=== PATIENT | male | born 1970 | race Caucasian/White ===

== ENCOUNTER 2023-05-06 10:23 | Emergency (ER) | payer OTHER, SELFPAY ==
[2023-05-06 10:29] VITALS: BP 147/106; PULSE 89; RESP 18; TEMP 35.8; O2SAT 97; BMI 30.7
--- NOTE | 2023-05-06 10:43 | ED.UPPEXIN ---
HPI - Extremity Injury (Upper) General Time Seen by Provider: 10:43 Date Seen: 05/06/23 Chief Complaint: Extremity Pain/Injury, Upper Stated Complaint: lac right hand Time Seen by Provider: 05/06/23 10:43 Source: patient and RN notes reviewed Mode of arrival: ambulatory Limitations: no limitations History of Present Illness HPI narrative: Nursing staff alerted me to this 52-year-old male that brought in the distal aspect of his left 2nd index finger after a miter saw took off the finger. He is controlling bleeding with a rag. Tetanus is not up-to-date. Nothing else was injured. Injury happened about 10:00 a.m.. He is predominantly right-handed. 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 MD complaint: injury to: left and finger Related Data Home Medications Medication Instructions Recorded Confirmed No Known Home Medications 05/06/23 05/06/23 Allergies Allergy/AdvReac Type Severity Reaction Status Date / Time No Known Drug Allergies Allergy Verified 05/06/23 10:29 Review of Systems Narrative: As per HPI. PFSH PFSH Social History Smoking Status: Never smoker Do you use any of these nicotine containing products: None Second hand tobacco smoke exposure: No How often do you have a drink containing alcohol: 4 or more times a week How many standard drinks containing alcohol do you have on a typical day: 1 or 2 How often do you have six or more drinks on one occasion: Monthly AUDIT-C Alcohol total score: 6 Non-prescribed substance use: denies use service: No Exam Const: Vital Signs, click to edit/add: Vital Signs - 24 hr 05/06/23 10:29 Temperature 96.4 F L Pulse Rate [Pulse Oximeter] 89 Respiratory Rate 18 Blood Pressure [Le ft Upper Arm] 147/106 H Pulse Oximetry 97 Oxygen Delivery Me thod Room Air The amputated portion involves the full nail and just starts below the base of the nail. Does not look like there is any bony involvement. His rag was removed from his finger, there was some oozing. This wound was visualized explored, there is no exposed bone that I can see. Does not seem to have any joint involvement. Wound is oozing. Eventually did apply a dressing with surgifoam and gauze. Bleeding did seem to be controlled with that. Documenting provider has reviewed patient's vital signs: yes Course Course ED Course: Reviewed with Eyal that I will talk to the hand surgeon at [facility] for potential reattachment. We will be updating his tetanus in the interim. Nursing staff is just going to apply some saline gauze and wrapped this wound for bleeding control. The distal tip is in a specimen container on ice. Consultations Consultation #1: Spoke with Narendra saxena RN at [facility]. He took information, is going to talk to their plastic surgeon and get back to us. 11:00 a.m. received a call back from [facility] and spoke with the plastic surgeon Dr. Pleitez. He recommends allowing this to heal on its own. He did send me a video which addressed wound care. Time: 10:47 Consultation #2: Have alerted Shayy from Orthopedics regarding his patient. I will push the video that Dr. Rios recommends to follow for wound care. They will see him for wound check. Time: 12:10 Vital Signs Vital signs: Initial Vital Signs Temperature 96.4 F L 05/06/23 10:29 Temperature Source Temporal Artery Scan 05/06/23 10:29 Pulse Rate 89 05/06/23 10:29 Pulse Rhythm Regular 05/06/23 10:29 Respiratory Rate 18 05/06/23 10:29 Blood Pressure 147/106 H 05/06/23 10:29 Blood Pressure Mean 119 H 05/06/23 10:29 Blood Pressure Position Supine 05/06/23 10:29 Pulse Oximetry 97 05/06/23 10:29 Oxygen Delivery Method Room Air 05/06/23 10:29 Vital Signs Temperature 96.4 F L 05/06/23 10:29 Pulse Rate 89 05/06/23 10:29 Respiratory Rate 18 05/06/23 10:29 Blood Pressure 147/106 H 05/06/23 10:29 Pulse Oximetry 97 05/06/23 10:29 Oxygen Delivery Method Room Air 05/06/23 10:29 Temperature 96.4 F L 05/06/23 10:29 Pulse Rate 89 05/06/23 10:29 Respiratory Rate 18 05/06/23 10:29 Blood Pressure 147/106 H 05/06/23 10:29 Pulse Oximetry 97 05/06/23 10:29 Oxygen Delivery Method Room Air 05/06/23 10:29 Discharge Plan Discharge Clinical Impression: Amputation of digit of left hand Patient Disposition: Home, Self-Care Condition: Stable Instructions: Finger Amputation (ED) Additional Instructions: Can take down the current dressing on Monday and start to shower as usual. Follow the video sent by Dr. Pleitez for wound care. Can call our local orthopedic office at [phone] to get scheduled for a follow-up wound check. If there are concerns about this wound becoming infected or have other issues, do recommend re-evaluation in the office. Can use Tylenol and ibuprofen during the day, have sent prescription of hydrocodone with acetaminophen to be used at nighttime. Be careful not to exceed total Tylenol dosing of 4000 mg in 24 hours. Which try to minimize using this hand for the next 24-48 hours as activity in use me increased bleeding. Activity Level: Activity as Tolerated Prescriptions: No Action No Known Home Medications Follow Up/Referrals: Provider,Not a Local [Primary Care Provider] - Stand Alone Forms: [facility] Info Instructions
--- NOTE | 2023-05-06 10:56 | ED.NURSE ---
dr tabor had placed a tourniquet on left index finger to control the bleeding. did place saline soaked gauze on the wound. tip on finger in sterile container on ice.
[2023-05-06] MEDS: TETANUS/DIPHTH/PERTUSSIS 0.5 ML SYRINGE IM (11:01)
== END 2023-05-06 13:04 | disposition home or self-care (01) ==
PROVIDERS: Emergency Provider Family Medicine
DX: S68.121A Partial traumatic metacarpophalangeal amputation of left index finger, initial encounter (principal); W27.0XXA Contact with workbench tool, initial encounter; Y93.H3 Activity, building and construction; Y99.0 Civilian activity done for income or pay
CPT/HCPCS: 90471; 90715; 99284

== ENCOUNTER 2023-12-22 09:18 | Emergency (ER) | payer OTHER, SELFPAY ==
[2023-12-22 09:21] VITALS: BP 153/101; PULSE 102; RESP 18; TEMP 36.7; O2SAT 96; BMI 29.8
--- NOTE | 2023-12-22 09:26 | ED.WOUNDLAC ---
HPI - Wound/Laceration General Time Seen by Provider: 09:27 Date Seen: 12/22/23 Chief Complaint: Laceration/Wound Stated Complaint: Lac across chin/jaw Time Seen by Provider: 12/22/23 09:21 Source: patient and RN notes reviewed Mode of arrival: ambulatory Limitations: no limitations History of Present Illness HPI narrative: This 53-year-old male sustained a laceration across his lower jaw. He was cutting a wire to fix a cattle sanders when the jig grinder wheel exploded. It hit him in the lower jaw. His teeth feel a bit sore on the lower jaw but he is able to occlude normally. His tetanus was in 2018. There was no loss of consciousness. The wound has been bleeding some, he states it did not initially bleed a lot which was a bit surprising to him. Nothing else was injured. Related Data Home Medications ?Medication ?Instructions ?Recorded ?Confirmed No Known Home Medications 05/06/23 05/06/23 Allergies Allergy/AdvReac Type Severity Reaction Status Date / Time No Known Drug Allergies Allergy Verified 05/06/23 10:29 Review of Systems Narrative: As per HPI. PFSH PFSH Social History Smoking Status: Never smoker Do you use any of these nicotine containing products: None Second hand tobacco smoke exposure: No How often do you have a drink containing alcohol: 4 or more times a week How many standard drinks containing alcohol do you have on a typical day: 1 or 2 How often do you have six or more drinks on one occasion: Monthly AUDIT-C Alcohol total score: 6 Non-prescribed substance use: denies use service: No Exam Const: Vital Signs, click to edit/add: Vital Signs - 24 hr 12/22/23 09:21 12/22/23 13:20 Temperature 98.0 F Pulse Rate [Right Pulse Oximeter] 102 H 87 Respiratory Rate 18 18 Blood Pressure [Ri ght Upper Arm] 153/101 H 144/96 H Pulse Oximetry 96 98 Oxygen Delivery Me thod Room Air Room Air This 53-year-old male has gaping laceration laterally over the left lower jaw, extends from the chin down to the left. It is more open towards the lateral and. Dentition seem to be intact, there is no entrance into the oral cavity. This is actively oozing blood. The wound itself measures 6 cm long, is linear. On either an there is just a little slight superficial epithelial loss without any significant entrance into the subcutaneous tissue. These 2 small areas on either end of the wound were not sutured, nothing would be gained placing sutures across this area. He does not seem to be tender have any step-off as I palpate along the mandible. Documenting provider has reviewed patient's vital signs: yes Course Course ED Course: Patient will have the wound anesthetized, nursing staff will irrigate the wound and then I will close with sutures. It is not amenable to glue or Steri-Strips. Will also x-ray his jaw. He does have significant swelling that is happening during the course of his ER, points to the power of the impact. Want to ensure no underlying jaw abnormality. Reevaluation(s) Time of Reevaluation #1: 11:02 Reevaluation #1: Reviewed with Eyal that it does look like his mandible is fractured. He would probably go to [facility] if possible. I will call and talk to them. This is technically an open fracture. Time of Reevaluation #2: 14:16 Reevaluation #2: Reviewed with Eyal that they are still considering plan for him at [place]. His face is not looking significantly worse, definitely swollen but not worsening. Consultations Consultation #1: Spoke with transfer center at [place]. She will contact facial trauma service, see if they would want me to do a facial CT here. I have asked for the x-ray images to be pushed to [place]. Patient is aware of the plan. We will be placing an IV, give him 2 g IV Ancef for open fracture. Have reviewed with him that we need to talk to the trauma surgeons specializing in this, he may need further imaging with a CT, this could be something that could be surgical. I have asked him to be NPO. We will also give him a little bit further pain management in the form of IV Toradol. The transfer center from [place] did call back at 11:38 a.m., Dr. Hi does want the facial CT done. We will push this through to them, they will call back once he is able to see this. 2:04 p.m. did speak with the facial trauma team. He would like the report from the radiologist, will send this to him. Did question whether not this patient should go to the OR for clean out and hematoma evacuation. He is going to look at the films again once he has the radiologist report. I will also look at the patient just to ensure that I do not feel that his facial swelling is significantly worsening. 2:27 p.m.: The triage nurse did call back, they want the patient to come to the ER where they will further evaluate him. It sounds as if they are likely going to take down the laceration repair and further irrigate and clean the wound. The fracture sounds as if it is nonsurgical. Will allow patient to go via private car, his is here. He declines anything further for pain prior to discharge to [facility]. Time: 11:05 Vital Signs Vital signs: Initial Vital Signs Temperature 98.0 F 12/22/23 09:21 Temperature Source Temporal Artery Scan 12/22/23 09:21 Pulse Rate 102 H 12/22/23 09:21 Pulse Rhythm Regular 12/22/23 09:21 Pulse Strength 3+ Normal 12/22/23 09:21 Respiratory Rate 18 12/22/23 09:21 Blood Pressure 153/101 H 12/22/23 09:21 Blood Pressure Mean 118 H 12/22/23 09:21 Blood Pressure Position Sitting 12/22/23 09:21 Pulse Oximetry 96 12/22/23 09:21 Oxygen Delivery Method Room Air 12/22/23 09:21 Vital Signs Temperature 98.0 F 12/22/23 09:21 Pulse Rate 102 H 12/22/23 09:21 Respiratory Rate 18 12/22/23 09:21 Blood Pressure 153/101 H 12/22/23 09:21 Pulse Oximetry 96 12/22/23 09:21 Oxygen Delivery Method Room Air 12/22/23 09:21 Temperature 98.0 F 12/22/23 09:21 Pulse Rate 87 12/22/23 13:20 Respiratory Rate 18 12/22/23 13:20 Blood Pressure 144/96 H 12/22/23 13:20 Pulse Oximetry 98 12/22/23 13:20 Oxygen Delivery Method Room Air 12/22/23 13:20 Medications Administered Medications: Discontinued Medications Generic Name Dose Route Start Last Admin Trade Name Freq PRN Reason Stop Dose Admin Cefazolin Sodium 2 gm/ Sodium 100 mls @ 200 mls/hr 12/22/23 11:08 12/22/23 11:58 Chloride IVPB 12/22/23 11:09 Infused ONCE ONE Infusion Ibuprofen 600 mg 12/22/23 10:16 12/22/23 10:39 Ibuprofen 200 Mg Tablet PO 12/22/23 10:17 600 mg ONCE ONE Administration Ketorolac Tromethamine 15 mg 12/22/23 11:24 12/22/23 11:32 Ketorolac 15 Mg/Ml Inj IVP 12/22/23 11:25 15 mg ONCE ONE Administration Lidocaine/Epinephrine 10 ml 12/22/23 09:29 12/22/23 10:39 Lidocaine 1%-Epi 1:100,000 20 Ml INFILTRATI 12/22/23 09:30 10 ml ONCE ONE Administration MDM - Wound/Laceration Imaging Data XR mandible: Attestation: I have reviewed the pertinent imaging results. My impression: I do see probable fracture of his mandible. Radiologist's impression: Patient: CHADD GRADY Facility:?[facility] Patient ID:?[id number] Site Patient ID:?[id number]. Site :?[id number] Study:?XRay-Facial MANDIBLE 4V-12/22/2023 11:02:52 AM Ordering Physician:Jade Mcbride Final Report: INDICATION: Laceration on jaw. TECHNIQUE: Mandible four views. COMPARISON: None. FINDINGS: Lucency and irregularity in the anterior mandible consistent with fracture. Osseous structures elsewhere as imaged are unremarkable. There is soft tissue irregularity and foci of increased density in the symphyseal region. IMPRESSION: 1. Fracture of the anterior/symphyseal region of the mandible. Follow-up maxillofacial CT may prove useful for further characterization. 2. Soft tissue swelling and foci of increased density anterior to the mandible. Densities may represent packing material or foreign bodies. Dictated by Roman Camacho MD @ 12/22/2023 11:39:11 AM (Electronic Signature) CT- Other: Attestation: I have reviewed the pertinent imaging results. Radiologist's impression: Patient: CHADD GRADY Facility:?[facility] Patient ID:?[id number] Site Patient ID:?[id number]. Site :?1970 Study:?CT-Facial w/o-12/22/2023 11:57:35 AM Ordering Physician:Jade Mcbride Final Report: INDICATION: Facial trauma. TECHNIQUE: CT maxillofacial without contrast. COMPARISON: Mandible radiographs same day. FINDINGS: Facial bones: There is a minimally displaced fracture involving the anterior cortex in the left parasymphyseal region of the mandible with fracture line extending longitudinally along the left body of the mandible, with abutment of the alveolar ridge. No tooth fracture demonstrated. Temporomandibular joints are intact. No additional evidence of fracture. Orbits and globes: Unremarkable. Sinuses: Mild mucosal thickening in the bilateral maxillary and ethmoid sinuses. Mucosal thickening involves the bilateral ostiomeatal units. Paranasal sinuses are otherwise clear. No air-fluid levels. Mastoid air cells are clear. Soft tissues: Oval lesion anterior to the left parasymphyseal region of the mandible with peripheral punctate foci of marked increased density measures 4.5 x 1.9 cm on image 32 of series 3. Mild adjacent soft tissue swelling. Soft tissues about the skull base elsewhere as imaged are unremarkable. IMPRESSION: 1. Acute minimally displaced fracture in the anterior cortex of the left parasymphyseal mandible with fracture line extending along the left body near the alveolar ridge. 2. Soft tissue lesion in the anterior left parasymphyseal region measures 4.5 x 1.9 cm and is concerning for evolving hematoma. Superimposed infection and foreign bodies may be considered in the appropriate clinical setting. Discussed with Dr. Izaguirre at approximately 12:45 p.m. on 12/22/2023 via telephone conversation. Dictated by Roman Camacho MD @ 12/22/2023 12:49:20 PM Please note that all CT scans at this facility use dose modulation, iterative reconstruction, and/or weight-based dosing when appropriate to reduce radiation dose to as low as reasonably achievable. Dictated by: Roman Camacho MD @ 12/22/2023 12:49:34 (Electronic Signature) Discharge Plan Discharge Clinical Impression: Laceration Mandible open fracture Qualifiers: Encounter type: initial encounter Mandible location: symphysis Qualified Code(s): S02.66XB - Fracture of symphysis of mandible, initial encounter for open fracture Patient Disposition: [facility] Discharge Location: [facility] Prescriptions: No Action No Known Home Medications Follow Up/Referrals: Provider,Not a Local [Primary Care Provider] - Stand Alone Forms: [facility] Info Instructions Procedures Laceration Laceration 1: Pre procedure diagnosis: Jaw laceration Post procedure diagnosis: Same Written consent by: patient Site marking: not applicable Verification/time out: correct patient, correct site and correct procedure Name of person performing procedure: Rae Hoang Site: face Side (If applicable): left Size (cm): 6 Description: linear Depth: simple, single layer Local Anesthetic: lidocaine 1% and with epi Amount of anesthesia used (mL): 12 Pre-repair: wound explored, irrigated extensively and deep structures intact Skin layer closed with: other (Ethilon) Size (cm): 4-0 Number of sutures: 16 Technique: simple, interrupted Estimated blood loss (if any): less than 5mls Conclusion: patient tolerated procedure
--- NOTE | 2023-12-22 10:16 | CRLHL7_ITS ---
For Patients: As a result of the Cures Act, medical imaging exams and procedure reports are released immediately into your electronic medical record. You may view this report before your referring provider. If you have questions, please contact your health care provider. INDICATION: Laceration on jaw. TECHNIQUE: Mandible four views. COMPARISON: None. FINDINGS: Lucency and irregularity in the anterior mandible consistent with fracture. Osseous structures elsewhere as imaged are unremarkable. There is soft tissue irregularity and foci of increased density in the symphyseal region. IMPRESSION: 1. Fracture of the anterior/symphyseal region of the mandible. Follow-up maxillofacial CT may prove useful for further characterization. 2. Soft tissue swelling and foci of increased density anterior to the mandible. Densities may represent packing material or foreign bodies. Dictated by Roman Camacho MD @ 12/22/2023 11:39:11 AM (Electronically Signed)
[2023-12-22] MEDS: IBUPROFEN 200 MG TABLET 600 MG PO (10:39)
[2023-12-22] MEDS: CEFAZOLIN 2 GM in 0.9 % SODIUM CHLORIDE Mini-bag 100 ML IVPB (11:28)
[2023-12-22] MEDS: KETOROLAC 15 MG/ML inj IVP (11:32)
--- NOTE | 2023-12-22 11:39 | CRLHL7_ITS ---
For Patients: As a result of the Cures Act, medical imaging exams and procedure reports are released immediately into your electronic medical record. You may view this report before your referring provider. If you have questions, please contact your health care provider. INDICATION: Facial trauma. TECHNIQUE: CT maxillofacial without contrast. COMPARISON: Mandible radiographs same day. FINDINGS: Facial bones: There is a minimally displaced fracture involving the anterior cortex in the left parasymphyseal region of the mandible with fracture line extending longitudinally along the left body of the mandible, with abutment of the alveolar ridge. No tooth fracture demonstrated. Temporomandibular joints are intact. No additional evidence of fracture. Orbits and globes: Unremarkable. Sinuses: Mild mucosal thickening in the bilateral maxillary and ethmoid sinuses. Mucosal thickening involves the bilateral ostiomeatal units. Paranasal sinuses are otherwise clear. No air-fluid levels. Mastoid air cells are clear. Soft tissues: Oval lesion anterior to the left parasymphyseal region of the mandible with peripheral punctate foci of marked increased density measures 4.5 x 1.9 cm on image 32 of series 3. Mild adjacent soft tissue swelling. Soft tissues about the skull base elsewhere as imaged are unremarkable. IMPRESSION: 1. Acute minimally displaced fracture in the anterior cortex of the left parasymphyseal mandible with fracture line extending along the left body near the alveolar ridge. 2. Soft tissue lesion in the anterior left parasymphyseal region measures 4.5 x 1.9 cm and is concerning for evolving hematoma. Superimposed infection and foreign bodies may be considered in the appropriate clinical setting. Discussed with Dr. Izaguirre at approximately 12:45 p.m. on 12/22/2023 via telephone conversation. Dictated by Roman Camacho MD @ 12/22/2023 12:49:20 PM Please note that all CT scans at this facility use dose modulation, iterative reconstruction, and/or weight-based dosing when appropriate to reduce radiation dose to as low as reasonably achievable. Dictated by: Roman Camacho MD @ 12/22/2023 12:49:34 (Electronically Signed)
[2023-12-22 13:20] VITALS: BP 144/96; PULSE 87; RESP 18; O2SAT 98
== END 2023-12-22 14:45 | disposition short-term general hospital (02) ==
PROVIDERS: Emergency Provider Family Medicine
DX: S02.66XB Fracture of symphysis of mandible, initial encounter for open fracture (principal); W20.8XXA Other cause of strike by thrown, projected or falling object, initial encounter
CPT/HCPCS: 12014; 70100; 70486; 96365; 96375; 99284; 99285; A9270; J0690; J1885